=== PATIENT | female | born 1970 | race Caucasian/White ===

== ENCOUNTER 2020-03-30 14:24 | Outpatient (NON) | payer BC, SELFPAY ==
[2020-03-30 18:21] LABS: Crystals Synovial Fluid None Seen (None Seen)
[2020-03-30 18:22] LABS: Appearance Synovial Fluid Cloudy (Clear); Color Synovial Fluid Yellow (Colorless); Lymphocytes Synovial Fluid 8 %; Macrophages Synovial Fluid 1 %; Monocytes Synovial Fluid 1 %; Neutrophils Synovial Fluid 91 % (0-25); Nucleated Cell Synovial Fluid 1619 /uL (0-200); RBC Synovial Fluid 13774 /uL (0-0); Source Synovial Fluid Synovial fluid
[2020-04-01 06:15] LABS: Glucose Synovial Fluid 50 mg/dL
[2020-04-08 13:35] LABS: Reference Lab Test Result Positive
== END 2020-03-30 14:25 ==
PROVIDERS: PCP Family Medicine Sports Medicine; Visit Provider Orthopaedic Surgery
DX: M25.461 Effusion, right knee (principal); M25.462 Effusion, left knee
CPT/HCPCS: 36415; 82945; 84157; 86430; 86431; 87070; 87075; 87205; 88108; 89051; 89060

== ENCOUNTER 2020-04-01 10:17 | Outpatient (CLI) | payer BC, SELFPAY ==
--- NOTE | ~2020-04-01 | US_ITS ---
EXAMINATION: US abscess cyst aspiration DATE: 04/01/2020 11:17 INDICATION: Left-sided Colón's cyst. TECHNIQUE: The procedure including the risks, benefits, and alternatives was discussed with the patie nt. Risks discussed included bleeding and infection. The patient verbalized understanding of the risk s and agreed to proceed. The skin posterior to the left knee was prepped and draped in usual sterile fashion. Anesthetic was administered with 1% lidocaine subcutaneously. An 18-gauge spinal needle wa s inserted into the Colón's cyst with ultrasound guidance. Fluid was aspirated. The needle was remove d and the entry site was cleaned and dressed. There were no immediate complications. FINDINGS: Ultrasound images demonstrate the needle tip in the Colón's cyst. IMPRESSION: 1. Ultrasound-guided left-sided Colón's cyst aspiration yielding 1 mL red-tinged, clear, joceline-colore d fluid. Reviewed, dictated and finalized at location A. IMPRESSION: 1. Ultrasound-guided left-sided Colón's cyst aspiration yielding 1 mL red-tinge d, clear, joceline-colored fluid.
== END 2020-04-01 10:18 | disposition home or self-care (01) ==
PROVIDERS: PCP Family Medicine Sports Medicine; Visit Provider Nurse Practitioner Family
DX: M71.22 Synovial cyst of popliteal space [Baker], left knee (principal)
CPT/HCPCS: 76942

== ENCOUNTER 2020-04-12 16:22 | Outpatient (CLI) | payer BC, SELFPAY ==
[2020-04-12 16:38] LABS: Basophils Percent Auto 0.3 % (0.2-1.2); Eosinophils Absolute Auto 0.2 K/mm3 (0-0.3); Eosinophils Percent Auto 2.4 % (0-4.4); Hematocrit 34.2 % (37.0-47.0); Hemoglobin 11.3 g/dL (12.0-15.0); Immature Granulocyte Absolute 0.02 K/mm3 (0.00-0.031); Immature Granulocyte Percent A 0.2 % (0-0.5); Lymphocytes Absolute Auto 1.87 K/mm3 (0.9-3.2); Lymphocytes Percent Auto 21.4 % (18.3-44.2); Mean Corpuscular Hemoglobin 29.4 pg (26-34); Mean Corpuscular Volume 88.8 fl (80-100); Mean Platelet Volume 9.8 fl (7.4-10.4); Monocytes Absolute Auto 0.6 K/mm3 (0.1-0.6); Monocytes Percent Auto 7.2 % (2.6-8.5); Neutrophils Percent Auto 68.5 % (45.5-73.1); Platelet Count Result 253 k/mm3 (150-375); Red Blood Count 3.85 M/mm3 (4.2-5.4); Red Cell Distribution Width 12.9 % (11.5-14.5); White Blood Count 8.7 K/mm3 (4.5-10.0)
[2020-04-12 16:52] LABS: Rheumatoid Factor 35.7 IU/ML (<12)
[2020-04-12 17:06] LABS: Erythrocyte Sedimentation Rate 29 mm/hr (0-20)
[2020-04-12 17:37] LABS: Vitamin D 25 Hydroxy 25.9 ng/mL
[2020-04-16 10:37] LABS: Anti Cyclic Citrullinated Pept >250 Units (<20)
[2020-04-17 12:35] LABS: Anti Nuclear Antibody Pattern Nuclear, Speckled
== END 2020-04-12 16:23 | disposition home or self-care (01) ==
PROVIDERS: PCP Family Medicine Sports Medicine; Visit Provider Nurse Practitioner Family
DX: M06.9 Rheumatoid arthritis, unspecified (principal)
CPT/HCPCS: 36415; 82306; 85025; 85652; 86038; 86039; 86200; 86430

== ENCOUNTER 2020-04-20 15:04 | Outpatient (CLI) | payer BC, SELFPAY ==
--- NOTE | ~2020-04-20 | MR_ITS ---
EXAMINATION: MR knee LT wo con DATE: 04/20/2020 16:52 INDICATION: Left knee pain. TECHNIQUE: Magnetic resonance imaging (MRI) of the left knee was performed without intravenous contra st. Sequences included axial PD-weighted FS FSE, coronal PD-weighted FSE and PD-weighted FS FSE, sagi ttal PD-weighted FSE, and sagittal T2-weighted FS FSE. COMPARISON: Left knee radiographs 03/30/2020 FINDINGS: Medial compartment: Medial meniscus is normal. There is partial-thickness cartilage loss of femoral condyle, deep at the central and posterior articular surface with mild subchondral edema-like marrow signal intensity. The re is shallow partial-thickness cartilage loss of tibial condyle. Marginal osteophytes are noted. Lateral compartment: There is a radial tear of posterior root of lateral meniscus. There is partial-thickness cartilage lo ss of femoral condyle, deep at the central articular surface. There is shallow partial-thickness cart ilage loss of tibial condyle. Marginal osteophytes are noted. Patellofemoral compartment: There is full-thickness cartilage loss of patellar median ridge and lateral facet with mild subchondr al edema-like marrow signal intensity. There is deep partial thickness cartilage loss of patellar med ial facet. There is full-thickness cartilage loss of central and lateral trochlea with mild subchondr al edema-like marrow signal intensity. There is partial-thickness cartilage loss of medial trochlea. Osteophytes are noted. Ligaments and tendons: The anterior and posterior cruciate ligaments are normal. There are changes of prior sprains of media l collateral ligament and fibular collateral ligament characterized by thickening and increased signa l intensity proximally. There is mild patellar tendinopathy. Fluid: There is a moderate-sized knee joint effusion. There is a large ruptured Colón's cyst. There is mild prepatellar and superficial infrapatellar bursitis. There is subcutaneous edema edema about the knee. IMPRESSION: 1. Severe chondrosis of patellofemoral compartment and moderate chondrosis of medial and lateral comp artments. 2. Tear of lateral meniscus. 3. Moderate-sized knee joint effusion. 4. Large ruptured Colón's cyst. Reviewed, dictated and finalized at location A. IMPRESSION: 1. Severe chondrosis of patellofemoral compartment and moderate chondrosis of m edial and lateral compartments. 2. Tear of lateral meniscus. 3. Moderate-sized knee joint effusion. 4. Large ruptured Colón's cyst.
--- NOTE | ~2020-04-20 | MR_ITS ---
EXAMINATION: MR knee RT wo con DATE: 04/20/2020 17:25 INDICATION: Right knee pain. TECHNIQUE: Magnetic resonance imaging (MRI) of the right knee was performed without intravenous contr ast. Sequences included axial PD-weighted FS FSE, coronal PD-weighted FSE and PD-weighted FS FSE, sag ittal PD-weighted FSE, and sagittal T2-weighted FS FSE. COMPARISON: Right knee radiographs 03/30/2020 FINDINGS: Medial compartment: Medial meniscus is intact, but motion artifact decreases sensitivity. There is partial-thickness cart ilage loss of femoral condyle, deep at the central articular surface. There is shallow partial-thickn ess cartilage loss of tibial condyle. Marginal osteophytes are noted. Lateral compartment: There is a complex tear involving anterior horn and body of lateral meniscus. There is a 9 mm paralab ral cyst adjacent to the anterior horn. There is full-thickness cartilage loss of femoral condyle inv olving the central and posterior articular surface with mild subchondral edema-like signal intensity. There is extensive partial thickness cartilage loss of femoral condyle. There is full-thickness cart ilage loss of tibial condyle involving the central, anterior, and lateral articular surface with mode rate subchondral edema-like marrow signal intensity. There is extensive partial thickness cartilage l oss of tibial condyle. Marginal osteophytes are noted. Patellofemoral compartment: There is deep partial thickness cartilage loss of patellar medial facet, median ridge, and lateral fa cet with mild subchondral edema-like marrow signal intensity. There is extensive partial thickness ca rtilage loss of trochlea, deep at the central and lateral articular surface. Marginal osteophytes are noted. Ligaments and tendons: The anterior cruciate ligament is normal. There is a tear of posterior cruciate ligament characterize d by thickening and increased signal intensity. There are changes of prior sprains of medial collater al ligament and fibular collateral ligament characterized by thickening and increased signal intensit y proximally. There is mild patellar tendinopathy. Fluid: There is a small knee joint effusion. There is mild prepatellar and superficial patellar bursitis. IMPRESSION: 1. Severe chondrosis of lateral compartment and moderate chondrosis of medial and patellofemoral comp artments. 2. Tear of lateral meniscus. 3. Small knee joint effusion. Reviewed, dictated and finalized at location A. IMPRESSION: 1. Severe chondrosis of lateral compartment and moderate chondrosis of medial a nd patellofemoral compartments. 2. Tear of lateral meniscus. 3. Small knee joint effusion.
== END 2020-04-20 15:05 | disposition home or self-care (01) ==
LOC: ANHIMG 15:06
PROVIDERS: PCP Family Medicine Sports Medicine; Visit Provider Nurse Practitioner Family
DX: S83.281A Other tear of lateral meniscus, current injury, right knee, initial encounter (principal); S83.282A Other tear of lateral meniscus, current injury, left knee, initial encounter; X58.XXXA Exposure to other specified factors, initial encounter; M25.461 Effusion, right knee; M25.462 Effusion, left knee; M71.22 Synovial cyst of popliteal space [Baker], left knee
CPT/HCPCS: 73721

== ENCOUNTER 2020-04-27 16:31 | Outpatient (NON) | payer BC, SELFPAY | END 2020-04-27 16:32 | LOC: ANHLAB 16:35 | PROVIDERS: PCP Family Medicine Sports Medicine; Visit Provider Orthopaedic Surgery | DX: M25.461 Effusion, right knee (principal) | CPT/HCPCS: 87070; 87075; 87205 ==

== ENCOUNTER 2020-09-24 16:12 | Outpatient (CLI) | payer BC, SELFPAY ==
--- NOTE | ~2020-09-24 | XR_ITS ---
EXAMINATION: XR foot LT standing 2V DATE: 09/24/2020 17:08 INDICATION: Rheumatoid arthritis with rheumatoid factor of multiple sites. TECHNIQUE: 2 views of left foot standing were obtained. COMPARISON: None. FINDINGS: Bone alignment is normal. No fracture. There is mild osteoarthritis of talonavicular joint and fourth and fifth proximal interphalangeal joints. There is moderate osteoarthritis of middle marsha culocuneiform joint. There are enthesophytes at the posterior and plantar aspect of calcaneal tuberos ity. IMPRESSION: 1. Polyarticular osteoarthritis. Reviewed, dictated and finalized at location A. ON TRADER
--- NOTE | ~2020-09-24 | XR_ITS ---
EXAMINATION: XR foot RT standing 2V DATE: 09/24/2020 17:08 INDICATION: Rheumatoid arthritis with rheumatoid factor of multiple sites. TECHNIQUE: 2 views of right foot standing were obtained. COMPARISON: None. FINDINGS: Pes planus is noted. No fracture. Joint spaces are normal. There are enthesophytes at the p osterior and plantar aspects of calcaneal tuberosity. IMPRESSION: 1. Pes planus. Reviewed, dictated and finalized at location A. AID IMPRESSION: 1. Pes planus.
--- NOTE | ~2020-09-24 | XR_ITS ---
EXAMINATION: XR hand BI arthritis min 3V DATE: 09/24/2020 17:07 INDICATION: Rheumatoid arthritis with rheumatoid factor at multiple sites. TECHNIQUE: 4 views of right hand and 4 views of left hand on 7 radiographs were obtained. COMPARISON: None. FINDINGS: RIGHT HAND: Bone alignment is normal. No fracture. There is mild osteoarthritis of first carpometacar pal joint and third-fifth distal interphalangeal joints. LEFT HAND: Bone alignment is normal. No fracture. There is mild osteoarthritis of first carpometacarp al joint and second, third, and fifth distal interphalangeal joints. IMPRESSION: 1. Mild polyarticular osteoarthritis. Reviewed, dictated and finalized at location A. RER DRIVER
--- NOTE | ~2020-09-24 | XR_ITS ---
EXAMINATION: XR sacroiliac joints min 3V DATE: 09/24/2020 17:07 INDICATION: Rheumatoid arthritis with rheumatoid factor of multiple sites. TECHNIQUE: 3 views of the sacroiliac joints were obtained. COMPARISON: None. FINDINGS: Bone alignment is normal. No fracture. There is mild left sacroiliac joint osteoarthritis c haracterized by tiny marginal osteophytes. IMPRESSION: 1. Mild left sacroiliac joint osteoarthritis. No evidence of inflammatory arthropathy. Reviewed, dictated and finalized at location A. WORKER IMPRESSION: 1. Mild left sacroiliac joint osteoarthritis. No evidence of inflammatory arthr opathy.
[2020-09-24 17:26] LABS: Hematocrit 35.4 % (37.0-47.0); Hemoglobin 11.7 g/dL (12.0-15.0); Mean Corpuscular HGB Conc 33.1 g/dl (32-36); Mean Corpuscular Hemoglobin 29.2 pg (26-34); Mean Corpuscular Volume 88.3 fl (80-100); Mean Platelet Volume 9.9 fl (7.4-10.4); Platelet Count Result 280 k/mm3 (150-375); Red Blood Count 4.01 M/mm3 (4.2-5.4); Red Cell Distribution Width 12.2 % (11.5-14.5); White Blood Count 7.3 K/mm3 (4.5-10.0)
[2020-09-24 17:30] LABS: Add Urine Microscopic? YES; Appearance Urine Clear (Clear); Bilirubin Urine Negative (Negative); Blood Urine Negative (Negative); Color Urine Yellow (Yellow); Glucose Urine UA Negative (Negative); Ketones Urine Negative (Negative); Leukocyte Esterase Ur Negative LEU/UL (Negative); Mucus Urine Rare /lpf; Nitrate Urine Negative (Negative); Protein Urine 1+ mg/dL (Negative); RBC Urine 0-2 /hpf (0-2); Specific Grav Ur 1.027 (1.001-1.035); Squamous Epithelial Cell Urine Occasional /hpf (Few); WBC Urine 0-3 /hpf
[2020-09-24 17:40] LABS: Alanine Aminotransferase 12 U/L (4-35); Albumin Level 4.2 g/dL (3.5-5.1); Alkaline Phosphatase 78 U/L (38-126); Anion Gap 5 mmol/L (8-16); Aspartate Amino Transferase 21 U/L (14-36); Bilirubin,Total 0.3 mg/dL (0.2-1.3); Blood Urea Nitrogen 16 mg/dL (7-17); CRP 2.2 mg/dL (<1.0); Calcium 9.1 mg/dL (8.4-10.2); Carbon Dioxide 28 mmol/L (22-30); Chloride 106 mmol/L (98-107); Estimated Glomerular Filt Rate > 60; Glucose 96 mg/dL (65-105); Potassium 3.9 mmol/L (3.4-5.0); Sodium 139 mmol/L (137-145); Uric Acid 4.7 mg/dL (2.5-7.5)
[2020-09-24 18:01] LABS: Erythrocyte Sedimentation Rate 41 mm/hr (0-20)
[2020-09-24 18:50] LABS: Hepatitis B Surface Antigen Negative (Negative)
[2020-09-24 19:07] LABS: Hepatitis B Surface Anti Res Negative; Hepatitis C Virus Antibody Negative (Negative)
== END 2020-09-24 16:13 | disposition home or self-care (01) ==
LOC: ANHIMG 16:18
PROVIDERS: PCP Family Medicine Sports Medicine; Visit Provider Internal Medicine
DX: M05.79 Rheumatoid arthritis with rheumatoid factor of multiple sites without organ or systems involvement (principal); M19.041 Primary osteoarthritis, right hand; M19.042 Primary osteoarthritis, left hand; M53.3 Sacrococcygeal disorders, not elsewhere classified; M19.072 Primary osteoarthritis, left ankle and foot; M21.41 Flat foot [pes planus] (acquired), right foot
CPT/HCPCS: 36415; 72202; 73130; 73620; 80053; 81001; 84550; 85027; 85652; 86140; 86706; 86803; 87340

== ENCOUNTER 2020-09-29 16:17 | Outpatient (CLI) | payer BC, SELFPAY ==
[2020-10-02 21:40] LABS: NIL 0.01 IU/mL; Quantiferon TB Plus, 1T NEGATIVE (NEGATIVE)
== END 2020-09-29 16:18 | disposition home or self-care (01) ==
LOC: ANHLAB 16:20
PROVIDERS: PCP Family Medicine Sports Medicine; Visit Provider Internal Medicine
DX: M05.79 Rheumatoid arthritis with rheumatoid factor of multiple sites without organ or systems involvement (principal)
CPT/HCPCS: 36415; 86480

== ENCOUNTER 2020-12-03 11:27 | Outpatient (CLI) | payer BC, SELFPAY ==
--- NOTE | ~2020-12-03 | US_ITS ---
EXAMINATION: US abscess cyst aspiration DATE: 12/03/2020 10:16 INDICATION: Left knee Colón's cyst TECHNIQUE: The procedure including the risks and benefits was discussed with the patient. Risks discu ssed included bleeding and infection. The patient understood the risks and agreed to proceed. The sk in overlying the left popliteal fossa was prepped and draped in usual sterile fashion. Anesthetic wa s administered with 1% lidocaine subcutaneously. An 18 gauge spinal needle was advanced under contin uous ultrasound observation into the Colón's cyst. Fluid was aspirated until the cyst was decompresse d. The needle was removed and the entry site was cleaned and dressed. Post procedure ultrasound dem onstrated no hemorrhage. FINDINGS: Ultrasound images demonstrate a 6.0 x 3.0 x 1.2 cm anechoic Colón's cyst at the left poplit eal fossa. Subsequent images demonstrate the aspiration needle advanced into the cyst. Final images d emonstrate the needle being removed from the decompressed cyst. IMPRESSION: 1. Successful Ultrasound-guided aspiration of a moderate-sized left Colón's cyst yielding 10 mm of cl ear light straw-colored fluid. Reviewed, dictated and finalized at location A. IMPRESSION: 1. Successful Ultrasound-guided aspiration of a moderate-sized left Colón's cys t yielding 10 mm of clear light straw-colored fluid.
[2020-12-03 11:53] LABS: Hematocrit 37.1 % (37.0-47.0); Hemoglobin 12.1 g/dL (12.0-15.0); Mean Corpuscular HGB Conc 32.6 g/dl (32-36); Mean Corpuscular Hemoglobin 28.1 pg (26-34); Mean Corpuscular Volume 86.3 fl (80-100); Mean Platelet Volume 10.1 fl (7.4-10.4); Platelet Count Result 234 k/mm3 (150-375); White Blood Count 4.7 K/mm3 (4.5-10.0)
[2020-12-03 11:57] LABS: Add Urine Microscopic? YES; Appearance Urine Cloudy (Clear); Bilirubin Urine Negative (Negative); Blood Urine Negative (Negative); Color Urine Yellow (Yellow); Glucose Urine UA Negative (Negative); Ketones Urine Negative (Negative); Leukocyte Esterase Ur Trace LEU/UL (Negative); Mucus Urine Few /lpf; Nitrate Urine Negative (Negative); Protein Urine Negative (Negative); Specific Grav Ur 1.016 (1.001-1.035); Squamous Epithelial Cell Urine Many /hpf (Few); Urobilinogen Urine Negative mg/dL (<2.0)
[2020-12-03 12:05] LABS: Alanine Aminotransferase 13 U/L (4-35); Alkaline Phosphatase 73 U/L (38-126); Anion Gap 4 mmol/L (8-16); Aspartate Amino Transferase 23 U/L (14-36); Bilirubin,Total 0.3 mg/dL (0.2-1.3); Blood Urea Nitrogen 7 mg/dL (7-17); Calcium 9.1 mg/dL (8.4-10.2); Carbon Dioxide 27 mmol/L (22-30); Chloride 107 mmol/L (98-107); Estimated Glomerular Filt Rate > 60; Glucose 92 mg/dL (65-105); Potassium 3.6 mmol/L (3.4-5.0); Sodium 138 mmol/L (137-145)
[2020-12-03 12:09] LABS: Complement C3 124 mg/dL (88-165)
[2020-12-03 12:20] LABS: Total Protein Urine Random 8 mg/dL; Ur Ttl Prot Creatinine Ratio 0.05 mg/mg (0-0.20)
[2020-12-03 14:01] LABS: Erythrocyte Sedimentation Rate 56 mm/hr (0-20)
[2020-12-14 22:29] LABS: SM Antibody <1.0; SM/RNP Antibody <1.0; SS-A <1.0; SS-B <1.0
== END 2020-12-03 11:28 | disposition home or self-care (01) ==
PROVIDERS: PCP Family Medicine Sports Medicine; Referring Provider Internal Medicine; Visit Provider Nurse Practitioner Family
DX: M71.22 Synovial cyst of popliteal space [Baker], left knee (principal); M19.90 Unspecified osteoarthritis, unspecified site; M05.79 Rheumatoid arthritis with rheumatoid factor of multiple sites without organ or systems involvement
CPT/HCPCS: 36415; 76942; 80053; 81001; 82570; 84156; 85027; 85652; 86140; 86160; 86225; 86235

== ENCOUNTER 2020-12-14 12:43 | Outpatient (CLI) | payer BC, SELFPAY ==
--- NOTE | ~2020-12-14 | US_ITS ---
EXAMINATION: US venous doppler LE BI EXAM DATE: 12/14/2020 14:38 INDICATION: M79.89 - Other specified soft tissue disorders TECHNIQUE: Multiple grayscale, color flow and Doppler images of the lower extremity venous systems bi laterally were obtained and reviewed. Saphenous venous mapping. The exam was reviewed on 12/15/2020. There is no prior study for comparison. FINDINGS: Right side: The right common femoral, femoral and profunda veins demonstrate normal color flow, respi ratory variation, augmentation and compressibility. Compressibility, color flow confirmed within the right popliteal, posterior tibial, peroneal, and greater saphenous veins. Right Standing Venous Mapping: reflux seconds duration; vein size. Greater saphenous origin: 0 seconds; 5.7 mm. Greater saphenous mid thigh:------ 0 seconds; 3.7 mm. Greater saphenous below knee:--- Greater than 5 seconds; 3.6 mm. Lesser saphenous proximally:------ 0 seconds; 4.4 mm. Lesser saphenous distally: 0 seconds; 2.3 mm. Left side: The left common femoral, femoral and profunda veins demonstrate normal color flow, respira tory variation, augmentation and compressibility. Compressibility, color flow confirmed within the l eft popliteal, posterior tibial, peroneal, and greater saphenous veins. Left Standing Venous Mapping: reflux seconds duration; vein size. Greater saphenous origin: 0 seconds; 7.7 mm. Greater saphenous mid thigh:------ 1 seconds; 5.7 mm. Greater saphenous below knee:--- 2 seconds; 5.1 mm. Lesser saphenous proximally:------ 0 seconds; 1.5 mm. Lesser saphenous distally: 0 seconds; 1.7 mm. Notation made that there were left calf varicose veins. IMPRESSION: 1. Bilateral greater saphenous venous reflux as above. 2. No DVT. Reviewed, dictated and finalized at location A.
== END 2020-12-14 12:44 | disposition home or self-care (01) ==
PROVIDERS: PCP Family Medicine Sports Medicine; Visit Provider Nurse Practitioner Family
DX: M79.89 Other specified soft tissue disorders (principal)
CPT/HCPCS: 93970

== ENCOUNTER 2021-03-08 15:04 | Outpatient (CLI) | payer BC, SELFPAY ==
[2021-03-08 15:41] LABS: Add Urine Microscopic? YES; Appearance Urine Clear (Clear); Bilirubin Urine Negative (Negative); Blood Urine Negative (Negative); Color Urine Yellow (Yellow); Glucose Urine UA Negative (Negative); Ketones Urine Negative (Negative); Leukocyte Esterase Ur Trace LEU/UL (Negative); Mucus Urine Rare /lpf; Nitrate Urine Negative (Negative); Protein Urine Negative (Negative); RBC Urine 0-2 /hpf (0-2); Specific Grav Ur 1.018 (1.001-1.035); Squamous Epithelial Cell Urine Rare /hpf (Few); Urobilinogen Urine Negative mg/dL (<2.0)
[2021-03-08 15:42] LABS: Hematocrit 36.8 % (37.0-47.0); Hemoglobin 11.9 g/dL (12.0-15.0); Mean Corpuscular HGB Conc 32.3 g/dl (32-36); Mean Corpuscular Hemoglobin 28.7 pg (26-34); Mean Corpuscular Volume 88.7 fl (80-100); Mean Platelet Volume 11.1 fl (7.4-10.4); Platelet Count Result 234 k/mm3 (150-375); Red Blood Count 4.15 M/mm3 (4.2-5.4); Red Cell Distribution Width 13.2 % (11.5-14.5); White Blood Count 5.4 K/mm3 (4.5-10.0)
[2021-03-08 15:49] LABS: Alanine Aminotransferase 16 U/L (4-35); Albumin Level 4.3 g/dL (3.5-5.1); Alkaline Phosphatase 74 U/L (38-126); Anion Gap 7 mmol/L (8-16); Aspartate Amino Transferase 25 U/L (14-36); Bilirubin,Total 0.5 mg/dL (0.2-1.3); Blood Urea Nitrogen 8 mg/dL (7-17); CRP < 0.5 mg/dL (<1.0); Calcium 9.5 mg/dL (8.4-10.2); Carbon Dioxide 28 mmol/L (22-30); Chloride 107 mmol/L (98-107); Estimated Glomerular Filt Rate > 60; Glucose 92 mg/dL (65-110); Potassium 3.2 mmol/L (3.4-5.0); Sodium 142 mmol/L (137-145)
[2021-03-08 16:26] LABS: Erythrocyte Sedimentation Rate 23 mm/hr (0-20)
== END 2021-03-08 15:05 | disposition home or self-care (01) ==
LOC: ANHLAB 15:08
PROVIDERS: PCP Family Medicine Sports Medicine; Visit Provider Internal Medicine
DX: M05.79 Rheumatoid arthritis with rheumatoid factor of multiple sites without organ or systems involvement (principal); M19.90 Unspecified osteoarthritis, unspecified site
CPT/HCPCS: 36415; 80053; 81001; 85027; 85652; 86140

== ENCOUNTER 2021-04-20 11:45 | Outpatient (CLI) | payer BC, SELFPAY ==
[2021-04-20 12:14] LABS: Hematocrit 37.3 % (37.0-47.0); Hemoglobin 12.1 g/dL (12.0-15.0); Mean Corpuscular HGB Conc 32.4 g/dl (32-36); Mean Corpuscular Hemoglobin 29.5 pg (26-34); Mean Platelet Volume 10.8 fl (7.4-10.4); Platelet Count Result 240 k/mm3 (150-375); Red Cell Distribution Width 14.1 % (11.5-14.5); White Blood Count 5.3 K/mm3 (4.5-10.0)
[2021-04-20 12:26] LABS: Add Urine Microscopic? NO; Appearance Urine Clear (Clear); Bilirubin Urine Negative (Negative); Blood Urine Negative (Negative); Color Urine Yellow (Yellow); Glucose Urine UA Negative (Negative); Ketones Urine Negative (Negative); Leukocyte Esterase Ur Negative LEU/UL (Negative); Nitrate Urine Negative (Negative); Protein Urine Negative (Negative); Urobilinogen Urine Negative mg/dL (<2.0)
[2021-04-20 12:32] LABS: Alanine Aminotransferase 22 U/L (4-35); Albumin Level 4.7 g/dL (3.5-5.1); Alkaline Phosphatase 86 U/L (38-126); Anion Gap 9 mmol/L (8-16); Aspartate Amino Transferase 27 U/L (14-36); Bilirubin,Total 0.4 mg/dL (0.2-1.3); Blood Urea Nitrogen 10 mg/dL (7-17); CRP 0.6 mg/dL (<1.0); Calcium 9.7 mg/dL (8.4-10.2); Carbon Dioxide 28 mmol/L (22-30); Chloride 105 mmol/L (98-107); Estimated Glomerular Filt Rate > 60; Glucose 99 mg/dL (65-110); Potassium 4.2 mmol/L (3.4-5.0); Sodium 142 mmol/L (137-145)
[2021-04-20 13:20] LABS: Erythrocyte Sedimentation Rate 25 mm/hr (0-20)
== END 2021-04-20 11:46 | disposition home or self-care (01) ==
LOC: ANHLAB 11:47
PROVIDERS: PCP Family Medicine Sports Medicine; Visit Provider Internal Medicine
DX: M05.79 Rheumatoid arthritis with rheumatoid factor of multiple sites without organ or systems involvement (principal); M19.90 Unspecified osteoarthritis, unspecified site
CPT/HCPCS: 36415; 80053; 81003; 85027; 85652; 86140

== ENCOUNTER 2021-06-02 11:06 | Outpatient (CLI) | payer BC, SELFPAY ==
[2021-06-02 12:31] LABS: Hematocrit 32.8 % (37.0-47.0); Hemoglobin 10.5 g/dL (12.0-15.0); Mean Corpuscular Hemoglobin 29.8 pg (26-34); Mean Corpuscular Volume 93.2 fl (80-100); Mean Platelet Volume 10.8 fl (7.4-10.4); Platelet Count Result 243 k/mm3 (150-375); Red Blood Count 3.52 M/mm3 (4.2-5.4); Red Cell Distribution Width 14.1 % (11.5-14.5); White Blood Count 7.4 K/mm3 (4.5-10.0)
[2021-06-02 12:48] LABS: Alanine Aminotransferase 16 U/L (4-35); Albumin Level 4.1 g/dL (3.5-5.1); Alkaline Phosphatase 77 U/L (38-126); Anion Gap 7 mmol/L (8-16); Aspartate Amino Transferase 24 U/L (14-36); Bilirubin,Total 0.6 mg/dL (0.2-1.3); Blood Urea Nitrogen 12 mg/dL (7-17); CRP 5.1 mg/dL (<1.0); Calcium 9.1 mg/dL (8.4-10.2); Carbon Dioxide 28 mmol/L (22-30); Chloride 104 mmol/L (98-107); Estimated Glomerular Filt Rate > 60; Glucose 92 mg/dL (65-110); Potassium 3.7 mmol/L (3.4-5.0); Sodium 139 mmol/L (137-145)
[2021-06-02 14:05] LABS: Erythrocyte Sedimentation Rate 75 mm/hr (0-20)
== END 2021-06-02 11:07 | disposition home or self-care (01) ==
PROVIDERS: PCP Family Medicine Sports Medicine; Visit Provider Internal Medicine
DX: M05.79 Rheumatoid arthritis with rheumatoid factor of multiple sites without organ or systems involvement (principal); M19.90 Unspecified osteoarthritis, unspecified site
CPT/HCPCS: 36415; 80053; 85027; 85652; 86140